=== PATIENT | male | born 1960 | race Caucasian/White ===

== ENCOUNTER 2017-11-28 15:37 | Emergency (ER) | payer OTHER, SELFPAY ==
[2017-11-28 15:38] VITALS: BP 159/92; PULSE 89; RESP 18; TEMP 36.3; O2SAT 96; BMI 28.9
--- NOTE | 2017-11-28 16:03 | RAD_ITS ---
STUDY: X-RAY - RIGHT WRIST REASON FOR EXAM: Male, 57 years old. Pain TECHNIQUE: 3 view(s) of the wrist were obtained. COMPARISON: None. FINDINGS: Normal visualized distal radius and ulna. Normal radiocarpal articulation. Normal distal radioulnar articulation. Normal carpal bones. Normal carpal articulations. Normal carpometacarpal articulation of the thumb. Normal second through fifth carpometacarpal articulations. Normal visualized metacarpal bones. The soft tissue structures are unremarkable. RAD/Wrist min 3 Views IMPRESSION: Normal x-ray examination of the wrist. Electronically Signed: Jorge Yusuf MD at 16:35 EDT , Service support ,
--- NOTE | 2017-11-28 16:18 | ED.VISSUMM ---
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 He has been working there for about 8-9 weeks. He recently had to take a few days off for bronchitis. 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 He states that last Sunday at around 6 AM he felt a pop in his wrist and noted it was painful. 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 He notes his right wrist is swollen and painful. He notes painful range of motion. He is right-handed. He attempted to contact his temporary agency was unsuccessful in getting hold of them. Physical Examination: Afebrile vital signs are stable Gen: Well-nourished well-developed Head: Normocephalic atraumatic Eyes: Perrl EOMI ENT: TMs clear no rhinorrhea moist mucous membranes Neck: Supple no lymphadenopathy no JVD nontender CVS: Regular rate rhythm no murmurs normal S1-S2 Respiratory: No distress clear to auscultation bilaterally chest nontender Abdomen: Soft nontender nondistended normal bowel sounds no masses Back: Nontender Extremity: Mild swelling along the distal radius. There is a positive Inessa's test. He has painful flexion and extension at the wrist joint. He is using his right hand to right and I observe it to be writing normally. He has had prior index and long finger amputations at the PIP joint. He is neurovascular intact distally. I appreciate no rash or breaks in the skin. Skin: Normal color no rash Neuro: alert orientated ?3 CN II-XII intact normal strength sensation reflexes gait cerebellar Psych: Normal affect normal mood Test Results: Wrist films were obtained. Showed chronic changes of degenerative arthritis but no acute fracture Emergency Department Course and Treatment: I believe this to be a tendinitis. We will place him in a thumb spica splint. Limited use of the arm. He will follow-up with Workmen's Comp. Impression: 1. Right wrist tendinitis This note was generated with [employer] software. It may contain incorrect words, spelling, and punctuation that were not noted in review of the chart prior to signing ED Disposition - Plan for ED Patient: Disposition: Home or Assisted Living Chief Complaint: Upper Extremity Injury Prescriptions: Ibuprofen [Motrin] 800 mg PO TID #20 tab Referrals: NOT,DEFINED [Primary Care Provider] - [facility] [GROUP OF PHYSICIANS] - 3-5 Days
[2017-11-28 17:05] VITALS: BP 147/89; PULSE 72; RESP 16; O2SAT 99
== END 2017-11-28 17:18 | disposition home or self-care (01) ==
PROVIDERS: Emergency Provider Emergency Medicine
DX: M77.9 Enthesopathy, unspecified (principal); M19.031 Primary osteoarthritis, right wrist
CPT/HCPCS: 73110; 99284